=== PATIENT | female | born 1965 | race Caucasian/White ===

== ENCOUNTER 2017-03-16 05:38 | Outpatient (CLI) | payer BC ==
[~2017-03-16] VITALS: Ht 157.5 cm; Wt 83.9 kg
[~2017-03-16 05:38] MED LIST: ACHD5005 PO; ALPR0.2550 PO; CA C1TAB75 PO; CIPR-225 PO; DCS100C PO; IBP600T1 PO; METO25TA2 PO; MULT-974 PO; OMEG-12 PO; SULF1TAB38 PO; VITA150T PO
[2017-03-16] MEDS ORDERED: ESTR1PAT77 TD (09:46)
[2017-03-16] MEDS ORDERED: ALPR0.254 PO (09:46)
[2017-03-16] MEDS ORDERED: CA C1TAB75 PO (09:46)
[2017-03-16] MEDS ORDERED: MULT-178 PO (09:46)
[2017-03-16] MEDS ORDERED: VITA150T PO (09:46)
[2017-03-16] MEDS ORDERED: METO-333 PO (09:46)
[2017-03-16] MEDS ORDERED: OMEG100032 PO (09:46)
== END 2017-03-16 09:48 ==
LOC: PREOP 05:38
PROVIDERS: ATTEND Surgery
DX: Z01.818 Encounter for other preprocedural examination (principal); Z12.11 Encounter for screening for malignant neoplasm of colon

== ENCOUNTER 2017-03-20 08:24 | Day surgery (SDC) | payer BC ==
[~2017-03-20] VITALS: Ht 157.5 cm; Wt 83.9 kg
[~2017-03-20 08:24] MED LIST changes: +ALPR0.254 PO; +ESTR1PAT77 TD; +METO-333 PO; +MULT-178 PO; +OMEG100032 PO
--- OUTSIDE RECORDS SUMMARY | 2017-03-20 08:27 | XMS REPORT | Continuity of Care Document ---
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 01/29/2013 DEBO PALMA DO Ot 620.2 OVARIAN CYST NEC/NOS 01/11/2015 DEBO PALMA DO Ot V76.12 01/14/2015 DEBO PALMA DO Ot V76.12 01/21/2015 DEBO PALMA DO Ot 793.80 08/04/2015 DEBO PALMA DO Ot R92.8 08/12/2015 DEBO PALMA DO Ot R92.8 01/09/2016 JAYESH PALACIOS APRN Ot M54.5 LOW BACK PAIN 01/09/2016 JAYESH PALACIOS HAND HARDENER Ot N39.0 URINARY TRACT INFECTION, SITE NOT SPECIF 01/11/2016 JAYESH PALACIOS HAND HARDENER Ot M54.5 LOW BACK PAIN 01/11/2016 JAYESH PALACIOS HAND HARDENER Ot N39.0 URINARY TRACT INFECTION, SITE NOT SPECIF 02/17/2016 Ot V76.12 OTH SCREEN MAMMO-MALIGN NEOPLASM OF LOS 02/17/2016 Ot V76.12 OTH SCREEN MAMMO-MALIGN NEOPLASM OF LOS 02/17/2016 Ot 268.9 VITAMIN D DEFICIENCY NOS 02/17/2016 Ot 300.02 GENERALIZED ANXIETY DIS 02/17/2016 Ot 401.9 HYPERTENSION NOS 02/17/2016 Ot V58.69 OTH MED,LT,CURRENT USE 02/17/2016 Ot 794.5 ABN THYROID FUNCT STUDY 02/17/2016 DEBO PALMA DO Ot 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 02/17/2016 DEBO PALMA DO Ot V76.12 OTH SCREEN MAMMO-MALIGN NEOPLASM OF LOS 02/17/2016 DEBO PALMA DO Ot 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 02/17/2016 DEBO PALMA DO Ot 791.9 ABN URINE FINDINGS NEC 02/17/2016 DEBO PALMA DO Ot V72.63 PRE-PROCEDURAL LABORATORY EXAMINATION 02/17/2016 DEBO PALMA DO Ot V74.8 SCREEN-BACTERIAL DIS NEC 02/17/2016 DEBO PALMA DO Ot V76.12 OTH SCREEN MAMMO-MALIGN NEOPLASM OF LOS 02/17/2016 DEBO PALMA DO Ot V76.12 OTH SCREEN MAMMO-MALIGN NEOPLASM OF LOS 02/17/2016 DEBO PALMA DO Ot 793.80 UNSPEC ABNORMAL MAMMOGRAM 02/17/2016 DEBO PALMA DO Ot R92.8 OTH ABN AND INCONCLUSIVE FINDINGS ON DX 03/13/2016 Ot V76.12 OTH SCREEN MAMMO-MALIGN NEOPLASM OF LOS 03/13/2016 Ot 268.9 VITAMIN D DEFICIENCY NOS 03/13/2016 Ot 300.02 GENERALIZED ANXIETY DIS 03/13/2016 Ot 401.9 HYPERTENSION NOS 03/13/2016 Ot V58.69 OTH MED,LT,CURRENT USE 03/13/2016 Ot 794.5 ABN THYROID FUNCT STUDY 03/13/2016 DEBO PALMA DO Ot 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 03/13/2016 DEBO PALMA DO Ot V76.12 OTH SCREEN MAMMO-MALIGN NEOPLASM OF LOS 03/13/2016 DEBO PALMA DO Ot 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 03/13/2016 DEBO PALMA DO Ot 791.9 ABN URINE FINDINGS NEC 03/13/2016 DEBO PALMA DO Ot V72.63 PRE-PROCEDURAL LABORATORY EXAMINATION 03/13/2016 DEBO PALMA DO Ot V74.8 SCREEN-BACTERIAL DIS NEC 03/13/2016 DEBO PALMA DO Ot V76.12 OTH SCREEN MAMMO-MALIGN NEOPLASM OF LOS 03/13/2016 DEBO PALMA DO Ot V76.12 OTH SCREEN MAMMO-MALIGN NEOPLASM OF LOS 03/13/2016 DEBO PALMA DO Ot 793.80 UNSPEC ABNORMAL MAMMOGRAM 03/13/2016 DEBO PALMA DO Ot R92.8 OTH ABN AND INCONCLUSIVE FINDINGS ON DX 2016 Ot V76.12 OTH SCREEN MAMMO-MALIGN NEOPLASM OF LOS 2016 Ot 268.9 VITAMIN D DEFICIENCY NOS 2016 Ot 300.02 GENERALIZED ANXIETY DIS 2016 Ot 401.9 HYPERTENSION NOS 2016 Ot V58.69 OTH MED,LT,CURRENT USE 2016 Ot 794.5 ABN THYROID FUNCT STUDY 2016 DEBO PALMA DO Ot 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 2016 DEBO PALMA DO Ot V76.12 OTH SCREEN MAMMO-MALIGN NEOPLASM OF LOS 2016 DEBO PALMA DO Ot 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 2016 DEBO PALMA DO Ot 791.9 ABN URINE FINDINGS NEC 2016 DEBO PALMA DO Ot V72.63 PRE-PROCEDURAL LABORATORY EXAMINATION 2016 DEBO PALMA DO Ot V74.8 SCREEN-BACTERIAL DIS NEC 2016 DEBO PALMA DO Ot V76.12 OTH SCREEN MAMMO-MALIGN NEOPLASM OF LOS 2016 DEBO PALMA DO Ot V76.12 OTH SCREEN MAMMO-MALIGN NEOPLASM OF LOS 2016 DEBO PALMA DO Ot 793.80 UNSPEC ABNORMAL MAMMOGRAM 2016 DEBO PALMA DO Ot R92.8 OTH ABN AND INCONCLUSIVE FINDINGS ON DX 05/26/2016 RADHA BRADEN HAND HARDENER Ot M25.561 PAIN IN RIGHT KNEE 05/31/2016 RADHA BRADEN HAND HARDENER Ot M25.561 PAIN IN RIGHT KNEE 06/07/2016 RADHA BRADEN APRN Ot M25.561 PAIN IN RIGHT KNEE Procedures Results Encounters ACCT No. Visit Date/Time Discharge Status Pt. Type Provider Facility Loc./Unit Complaint [id number] 2016 11:46:00 2015 23:59:59 CLS Outpatient RADHA BRADEN HAND HARDENER [facility] RAD RT KNEE PAIN [id number] 01/09/2016 15:51:00 2015 17:15:00 DIS Emergency JAYESH PALACIOS [facility] HAND HARDENER [facility] ER BLOOD IN URINE/CRAMPING [id number] 07/28/2015 13:24:00 2015 23:59:59 CLS Outpatient DEBO PALMA DO [facility] RAD ABNORMAL FINDING ON MAMMOGRAPHY [id number] 01/08/2015 08:27:00 2014 23:59:59 CLS Outpatient DEBO PALMA DO [facility] RAD ABNORMAL MAMMO [id number] 01/01/2015 13:47:00 2014 23:59:59 CLS Outpatient DEBO PALMA DO [facility] RAD SCREENING [id number] 11/24/2013 09:32:00 2013 23:59:59 CLS Outpatient DEBO PALMA DO [facility] RAD SCREENING [id number] 01/28/2013 06:55:00 2012 12:10:00 DIS Outpatient DEBO PALMA DO [facility] UTERINE FIBROIDS [id number] 01/21/2013 11:58:00 2012 23:59:59 CLS Outpatient DEBO PALMA DO [facility] PREOP UTERINE FIBROIDS [id number] 11/22/2012 09:14:00 2012 23:59:59 CLS Outpatient DEBO PALMA DO [facility] RAD ROUTINE,UTERAN ENLARGEMENT [id number] 03/20/2017 10:15:00 PEN Preadmit DEMETRIA QUINTANA DO [facility] SDC SCREENING [id number] 08/28/2012 15:30:00 Document Registration [id number] 08/28/2012 15:08:00 Document Registration [id number] 09/25/2011 09:23:00 Document Registration [id number] 09/20/2010 08:55:00 Document Registration
[2017-03-20] MEDS ORDERED: LACTATED RINGERS 1,000 ML IV STA (08:33)
[2017-03-20 08:45] VITALS: BP 128/70
--- NOTE | 2017-03-20 09:36 | Progress Note-Pre Operative ---
Pre-Operative Progress Note H&P Reviewed The H&P was reviewed, patient examined and no changes noted. Date Seen by Provider: Mar 20, 2017 Time Seen by Provider: 09:35 Date H&P Reviewed: Mar 20, 2017 Time H&P Reviewed: 09:36 Pre-Operative Diagnosis: screeing colonoscopy DEMETRIA QUINTANA DO Mar 20, 2017 9:36 am
[2017-03-20] MEDS ORDERED: PROPOFOL INJECTION 50 ML IV ONE (10:20)
[2017-03-20] MEDS ORDERED: MIDAZOLAM 2 MG/2 ML (VERSED) VIAL ONE (10:20)
--- NOTE | 2017-03-20 11:08 | Progress Note-Post Operative ---
Post-Operative Progess Note Surgeon (s)/Vehicle Sales Professional (s) Surgeon DEMETRIA QUINTANA DO Vehicle Sales Professional: na Pre-Operative Diagnosis screeing colonoscopy Post-Operative Diagnosis normal colon Procedure & Operative Findings Date of Procedure 03/20/17 Procedure Performed/Findings colonoscopy Anesthesia Type per pizza driver Estimated Blood Loss Estimated blood loss (mL): none Specimens/Packing Specimens Removed na DEMETRIA QUINTANA DO Mar 20, 2017 11:08
--- NOTE | 2017-03-20 11:10 | Discharge Inst-Simple/Standard ---
Discharge Inst-Standard Patient Instructions/Follow Up Plan of Care/Instructions/FU: repeat colonoscopy in 10 years unless family history of colon cancer which would be 5 years. Any problems before then be re-evaluated. Activity as Tolerated: Yes Discharge Diet: Regular Diet DEMETRIA QUINTANA DO Mar 20, 2017 11:10
[2017-03-20 11:30] VITALS: BP 102/52
[2017-03-20 12:00] VITALS: BP 108/54
[2017-03-20 12:10] VITALS: BP 108/54
--- NOTE | 2017-03-20 23:58 | OPERATIVE REPORT ---
DATE OF SERVICE: 03/20/2017 PREOPERATIVE DIAGNOSIS: Screening colonoscopy. POSTOPERATIVE DIAGNOSIS: Normal colon. PROCEDURE: Colonoscopy. SURGEON: Demetria Wu DO ANESTHESIA: Per REPORT MANAGER. ESTIMATED BLOOD LOSS: None. COMPLICATIONS: None. INDICATIONS: The patient is a 51-year-old female here for screening colonoscopy. She understands risks and benefits and wishes to proceed. Consent was signed on chart. DESCRIPTION OF PROCEDURE: The patient was taken to the endoscopy suite, placed in left lateral recumbent position. Timeout was performed. Digital rectal exam was performed. There were no palpable polyps, masses or ulcerations. Scope was inserted in the rectum and advanced all way to the cecum with minimal difficulty. Prep was adequate. The cecum had no polyps, masses or ulcerations. Scope was then continued to be slowly retracted back. There were no polyps, mass or ulcerations within the ascending, transverse, descending and sigmoid colon. In the rectum, the scope was continuously retracted back and then also retroflexed, noting no other pathology. The scope was then returned to its normal position, slowly withdrawn until completely removed. The patient tolerated the procedure well without any complications. She was taken to recovery room in stable condition. RECOMMENDATIONS: The patient will need repeat colonoscopy in 10 years unless family history of colon cancer which would then be 5 years. If she has any problems prior to that, she should be reevaluated at that time. Job ID: [id number] DocumentID: [id number] Dictated Date: 03/20/2017 11:13:31 Pan Tank Worker Date: 03/20/2017 23:57:30 Dictated By: DEMETRIA WU DO
== END 2017-03-20 12:10 | disposition home or self-care (01) ==
LOC: SDC 08:24
PROVIDERS: ATTEND Surgery
DX: Z12.11 Encounter for screening for malignant neoplasm of colon (principal); I10 Essential (primary) hypertension; F41.9 Anxiety disorder, unspecified; E66.9 Obesity, unspecified; Z68.33 Body mass index [BMI] 33.0-33.9, adult; Z79.899 Other long term (current) drug therapy

== ENCOUNTER → 2018-05-10 | Outpatient (CLI) | payer BC ==
--- NOTE | 2018-05-10 10:57 | Diagnostic Imaging Report ---
CLINICAL INDICATION: Patient injured right knee three years ago. Patient has pain and swelling this year. No recent injury. EXAM: X-ray of the right knee, three views. COMPARISON: X-ray of the right knee dated 06/05/2016. FINDINGS: There is no acute fracture or dislocation. There is slight progression of moderately hypertrophic tricompartmental spurs. There is at least mild medial and lateral compartment narrowing which has slightly progressed. There appears to be a knee effusion. IMPRESSION: Moderate tricompartmental arthritis of the right knee which has progressed. Dictated by: Dictated on workstation # [id number]
== END ==
LOC: RAD 08:43
PROVIDERS: ATTEND Family Medicine
DX: M17.11 Unilateral primary osteoarthritis, right knee (principal)
CPT/HCPCS: 73562

== ENCOUNTER → 2018-05-28 | Outpatient (CLI) | payer BC ==
--- NOTE | 2018-05-28 13:07 | Diagnostic Imaging Report ---
PROCEDURE: MRI right joint lower extremity without contrast. TECHNIQUE: Multiplanar, multisequence MR imaging of the right knee was performed without contrast. COMPARISON: None available. INDICATION: Right knee pain. FINDINGS: MENISCI Medial meniscus: Normal. Lateral meniscus: Extensive macerated tearing of the body and anterior horn of the lateral meniscus. The body is partially extruded into the lateral gutter. LIGAMENTS ACL: Intact. PCL: Intact. MCL: Intact. LCL: The lateral collateral ligamentous complex is intact. EXTENSOR MECHANISM The extensor mechanism is intact. CARTILAGE Medial compartment: Medial compartment articular cartilage is well preserved without focal high-grade chondromalacia. Lateral compartment: Broad area of full-thickness articular cartilage loss throughout the weightbearing aspect of the lateral femoral condyle. Patellofemoral compartment: Multifocal full-thickness chondral fissuring and loss in the inferior aspect of the lateral patellar facet. BONE No fracture, stress fracture or osteonecrosis. SOFT TISSUE No knee joint effusion. Large Rowe's cyst measures 7.5 x 3.9 x 2.4 cm. IMPRESSION: 1. Extensive macerated tearing of the anterior horn and body of the lateral meniscus. The body is partially extruded into the lateral gutter. 2. There is associated full-thickness articular cartilage loss throughout the weightbearing aspect of the lateral compartment. 3. Multifocal and degenerative partial-thickness articular cartilage loss in the patella. 4. Large unruptured Rowe's cyst. Dictated by: Dictated on workstation # [id number]
== END ==
LOC: RAD 09:50
PROVIDERS: ATTEND Nurse Practitioner Family
DX: M23.241 Derangement of anterior horn of lateral meniscus due to old tear or injury, right knee (principal); M23.91 Unspecified internal derangement of right knee; M71.21 Synovial cyst of popliteal space [Baker], right knee
CPT/HCPCS: 73721

== ENCOUNTER → 2018-09-11 | Outpatient (CLI) | payer BC ==
--- NOTE | 2018-09-11 12:44 | Diagnostic Imaging Report ---
INDICATION: Routine screening. Comparison is made with prior mammogram from 01/01/2015 and 11/24/2013. 2-D and 3-D bilateral screening mammography was performed with a Computer Aided Detection (CAD) system. FINDINGS: Both breasts are heterogeneously dense, limiting the sensitivity of mammography. The parenchymal pattern is stable. No mass or malignant appearing microcalcifications are seen. The axillae are unremarkable. IMPRESSION: No mammographic features suspicious for malignancy are identified. ACR BI-RADS Category 1: Negative. Result letter will be mailed to the patient. Note: At least 10% of breast cancer is not imaged by mammography. Dictated by: Dictated on workstation # [id number]
== END ==
LOC: RAD 10:30
PROVIDERS: ATTEND Nurse Practitioner Family
DX: Z12.31 Encounter for screening mammogram for malignant neoplasm of breast (principal)
CPT/HCPCS: 77067

== ENCOUNTER 2018-11-13 05:31 | Outpatient (CLI) | payer BC ==
[~2018-11-13] VITALS: Ht 157.5 cm; Wt 83.9 kg
[2018-11-13] MEDS ORDERED: CETI10TA17 PO (10:51)
[2018-11-13] MEDS ORDERED: VITA1CAP42 PO (10:51)
== END 2018-11-13 10:58 | disposition home or self-care (01) ==
LOC: PREOP 05:31
PROVIDERS: ATTEND Orthopaedic Surgery
DX: Z01.818 Encounter for other preprocedural examination (principal)

== ENCOUNTER 2018-12-26 09:53 | Emergency (ER) | payer BC ==
[~2018-12-26] VITALS: Ht 157.5 cm; Wt 79.4 kg
[~2018-12-26 09:53] MED LIST changes: +CETI10TA17 PO; +HYDR-3816 PO; +VITA1CAP42 PO
[2018-12-26 10:57] LABS: COLOR,URINE BROWN
[2018-12-26 10:58] LABS: BILIRUBIN,URINE NEGATIVE (NEGATIVE); CLARITY,URINE VERY CLOUDY; GLUCOSE, URINE (UA) NEGATIVE (NEGATIVE); KETONES,URINE 1+ (NEGATIVE); LEUKOCYTE ESTERASE ,URINE 3+ (NEGATIVE); NITRITE,URINE POSITIVE (NEGATIVE); PH,URINE 5 (5-9); PROTEIN,URINE 4+ (NEGATIVE); RBC,URINE TNTC /HPF; UROBILINOGEN,URINE 1 MG/DL (NORMAL); WBC,URINE 50-100 /HPF
[2018-12-26 10:59] LABS: BACTERIA,URINE NEGATIVE /HPF
[2018-12-26] MEDS ORDERED: CIPR500T4 PO (11:37)
[2018-12-26] MEDS ORDERED: PHEN-640 PO (11:37)
--- NOTE | 2018-12-26 11:38 | ED GU-Female ---
General Chief Complaint: - Urinary Stated Complaint: LOW ABD PAIN / BLOOD IN URINE Nursing Triage Note: Pt to ED rm 7 with c/o abdominal cramping, dysuria and hematuria. Pt reports symptoms began suddenly this morning. Pt reports blood in the toilet and on the paper when wiping. Pt gave urine sample and urine was dark brown. Nursing Sepsis Screen: No Definite Risk Source: patient Exam Limitations: no limitations Allergies and Home Medications Allergies Coded Allergies: morphine (Verified Allergy, Severe, ITCHING, 01/09/16) Penicillins (Verified Allergy, Unknown, 03/20/17) Home Medications Alprazolam 0.25 Mg Tablet, 0.25 MG PO TID PRN for ANXIETY, (Reported) B Complex with Vitamin C 1 Each Capsule, 1 EACH PO DAILY, (Reported) Ca Carbonate/Vitamin D3/Vit K 1 Each Tab.chew, 2 EACH PO DAILY, (Reported) Cetirizine HCl 10 Mg Tablet, 10 MG PO DAILY, (Reported) Estradiol 1 Each Patch.tdwk, 1 PATCH TD WEEK, (Reported) Hydrocodone/Acetaminophen 1 Each Tablet, 1 TAB PO Q4H PRN for PAIN-MODERATE Prescribed by: HEATHER BLACKBURN on 11/20/18 1133 Metoprolol Tartrate 25 Mg Tablet, 25 MG PO BID, (Reported) Multivitamin 1 Each Tablet, 1 EACH PO DAILY, (Reported) [place]-3/Dha/Epa/Fish Oil 1,000 Mg Capsule, 1,000 MG PO BID, (Reported) Past Jgpjudv-Atqchm-Rekcfc Hx Patient Social History Alcohol Use: Occasionally Uses Recreational Drug Use: No 2nd Hand Smoke Exposure: No Recent Foreign Travel: No Contact w/Someone Who Travel: No Recent Infectious Disease Expo: No Recent Hopitalizations: No Immunizations Up To Date Tetanus Booster (TDap): More than 5yrs PED Vaccines UTD: No Seasonal Allergies Seasonal Allergies: Yes (mild) Past Medical History Surgeries: Yes (HYMENECTOMY, right foot, R knee) Appendectomy, Section, Hysterectomy, Orthopedic Respiratory: No Cardiac: Yes Hypertension Neurological: No Reproductive Disorders: No BLADE GRINDER History: Hysterectomy Genitourinary: No Gastrointestinal: No Musculoskeletal: Yes (OSTEOARTHRITIS) Arthritis Endocrine: No HEENT: No Loss of Vision: Denies Hearing Impairment: Denies Cancer: No (pre cancerous cells on cervix ) Psychosocial: Yes Anxiety Integumentary: No Blood Disorders: No Adverse Reaction/Blood Tranf: No Physical Exam Vital Signs Vital Signs - First Documented 12/26/18 10:24 Temp 97.6 Pulse 69 Resp 15 B/P (MAP) 123/82 (96) Pulse Ox 98 O2 Delivery Room Air Capillary Refill : Less Than 3 Seconds Height, Weight, BMI Height: 5'2.00" Weight: 175lbs. 0.0oz. 79.328384dl; 33.8 BMI Method:Stated Progress/Results/Core Measures Suspected Sepsis Recent Fever Within 48 Hours: No Infection Criteria Present: None New/Unexplained Altered Menta: No Sepsis Screen: No Definite Risk SIRS Temperature:97.6 Pulse: 69 Respiratory Rate: 15 Blood Pressure 123 /82 Mean: 96 Results/Orders Lab Results Laboratory Tests Test 12/26/18 10:28 Range/Units Urine Color BROWN H Urine Clarity VERY CLOUDY H Urine pH 5 5-9 Urine Specific [place] 1.020 1.016-1.022 Urine Protein 4+ NEGATIVE Urine Glucose (UA) NEGATIVE NEGATIVE Urine Ketones 1+ H NEGATIVE Urine Nitrite POSITIVE NEGATIVE Urine Bilirubin NEGATIVE NEGATIVE Urine Urobilinogen 1 NORMAL MG/DL Urine Leukocyte Esterase 3+ H NEGATIVE Urine RBC (Auto) 5+ H NEGATIVE Urine RBC TNTC H /HPF Urine WBC 50-100 H /HPF Urine Squamous Epithelial Cells NONE /HPF Urine Crystals NONE /LPF Urine Bacteria NEGATIVE /HPF Urine Casts NONE /LPF Urine Mucus NEGATIVE /LPF Urine Culture Indicated YES My Orders Orders - ANNEMARIE BARTON MD Ua Culture If Indicated (12/26/18 10:18) Urine Culture (12/26/18 10:28) Vital Signs/I&O 12/26/18 10:24 Temp 97.6 Pulse 69 Resp 15 B/P (MAP) 123/82 (96) Pulse Ox 98 O2 Delivery Room Air Capillary Refill : Less Than 3 Seconds Blood Pressure Mean: 96 Departure Impression Primary Impression: Urinary tract infection Qualified Codes: N39.0 - Urinary tract infection, site not specified Additional Impressions: Dysuria Hematuria Qualified Codes: R31.9 - Hematuria, unspecified Disposition: 01 HOME, SELF-CARE Condition: Stable Departure-Patient Inst. Decision time for Depature: 11:33 Referrals: FATEMEH PIEDRA MD (PCP/Family) Primary Care Physician Patient Instructions: Blood in the Urine (Hematuria) in Adults, Urinary Tract Infections in Adults Add. Discharge Instructions: Aggressively hydrated with plenty of clear liquids today. Please start your antibiotic promptly today and make sure you get your second dose in before bed tonight. Return to care if you have worsening symptoms such as escalating pain, development of fevers, vomiting, etc. Follow-up with your primary care provider after 48 hours to review urine culture. Because of blood in your urine, it is recommended that you have your urine checked again after completing antibiotics to ensure the blood clears. If treating for urinary tract infection does not resolve your symptoms, you may need further workup which might include CT imaging, referral to urology, etc. In addition to the prescribed medications, you may take Tylenol and/or ibuprofen. All discharge instructions reviewed with patient and/or family. Voiced understanding. Scripts Phenazopyridine HCl (Pyridium) 200 Mg Tablet 1 TAB PO TID PRN for PAIN-MODERATE TO SEVERE, #10 TAB Prov: ANNEMARIE BARTON MD 12/26/18 Ciprofloxacin HCl (Ciprofloxacin HCl) 500 Mg Tablet 500 MG PO BID, #14 TAB Prov: ANNEMARIE BARTON MD 12/26/18 Copy Copies To 1: FATEMEH PIEDRA MD, JOSHUA T MD Dec 26, 2018 11:38
[2018-12-26 11:50] VITALS: BP 96/71
== END 2018-12-26 11:53 | disposition home or self-care (01) ==
LOC: EDUNIT# 09:53 → ER 09:55
DX: N39.0 Urinary tract infection, site not specified (principal); I10 Essential (primary) hypertension; F41.9 Anxiety disorder, unspecified; Z88.0 Allergy status to penicillin; Z88.5 Allergy status to narcotic agent; Z90.49 Acquired absence of other specified parts of digestive tract; Z90.710 Acquired absence of both cervix and uterus
CPT/HCPCS: 81000; 87077; 87088; 87186; 99282

== ENCOUNTER → 2019-11-11 | Outpatient (CLI) | payer BC ==
[~2019-11-11] MED LIST changes: +CIPR500T4 PO; +HYDR-34 PO; -HYDR-3816 PO; +PHEN-640 PO
--- NOTE | 2019-11-11 12:40 | Diagnostic Imaging Report ---
INDICATION: Routine screening. COMPARISON: 09/11/2018 and 01/01/2015. TECHNIQUE: 2D and 3D bilateral screening mammography was performed with CAD. FINDINGS: Both breasts are heterogeneously dense, limiting the sensitivity of mammography. The parenchymal pattern is stable. No mass or malignant appearing microcalcifications are seen. The axillae are unremarkable. IMPRESSION: No mammographic features suspicious for malignancy are identified. ACR BI-RADS Category 1: Negative. Result letter will be mailed to the patient. Note: At least 10% of breast cancer is not imaged by mammography. Dictated by: Dictated on workstation # [id number]
== END ==
LOC: RAD 09:57
PROVIDERS: ATTEND Nurse Practitioner Women's Health
DX: Z12.31 Encounter for screening mammogram for malignant neoplasm of breast (principal)
CPT/HCPCS: 77063; 77067

== ENCOUNTER → 2020-07-21 | Outpatient (CLI) | payer BC ==
[~2020-07-21] MED LIST changes: +ALPR.25T PO; -ALPR0.254 PO
--- NOTE | 2020-07-21 14:47 | Diagnostic Imaging Report ---
INDICATION: Palpable lump right breast. COMPARISON: Correlation is made with the diagnostic mammogram from earlier this same day. FINDINGS: Sonographic interrogation of the area of palpable abnormality in the right breast was performed. This corresponds to the 6 o'clock location. No sonographic abnormality is seen. No solid or cystic mass is detected. IMPRESSION: No sonographic abnormality is detected. Continued close clinical and self breast exams are recommended to confirm stability of the palpable abnormality. ACR BI-RADS Category 1: Negative. Dictated by: Dictated on workstation # [id number]
--- NOTE | 2020-07-21 15:49 | Diagnostic Imaging Report ---
INDICATION: Palpable lump right breast. COMPARISON: Correlation is made with the prior mammogram of 07/28/2015. TECHNIQUE: Unilateral 2D and 3D diagnostic mammography was performed. FINDINGS: Scattered fibroglandular densities in the right breast are noted. A BB marker was placed at the area of palpable abnormality in the inner right breast. No underlying abnormality is seen. No mass or malignant appearing microcalcifications are seen. The right axilla is unremarkable. IMPRESSION: No mammographic features suspicious for malignancy are identified. Even so, directed sonographic interrogation of the area of palpable abnormality is recommended and will be performed today. ACR BI-RADS Category 0: Incomplete. (Needs additional imaging evaluation). Result letter will be mailed to the patient. Note: At least 10% of breast cancer is not imaged by mammography. Dictated by: Dictated on workstation # [id number]
== END ==
LOC: RAD 13:45
PROVIDERS: ATTEND Obstetrics & Gynecology
DX: N63.10 Unspecified lump in the right breast, unspecified quadrant (principal)
CPT/HCPCS: 76642; 77065; G0279

== ENCOUNTER → 2021-02-18 | Outpatient (CLI) | payer BC ==
[~2021-02-18] MED LIST changes: -CIPR500T4 PO; +CIPR500T5 PO
--- NOTE | 2021-02-21 08:32 | Diagnostic Imaging Report ---
INDICATION: Routine screening. COMPARISON: 11/11/2019 and 09/11/2018. TECHNIQUE: 2D and 3D bilateral screening mammography was performed with CAD. FINDINGS: Both breasts are heterogeneously dense, limiting the sensitivity of mammography. The parenchymal pattern is stable. No mass or malignant-appearing microcalcifications are seen. The axillae are unremarkable. IMPRESSION: No mammographic features suspicious for malignancy are identified. ACR BI-RADS Category 1: Negative. Result letter will be mailed to the patient. Note: At least 10% of breast cancer is not imaged by mammography. Dictated by: Dictated on workstation # [id number]
== END ==
LOC: RAD 14:45
PROVIDERS: ATTEND Obstetrics & Gynecology
DX: Z12.31 Encounter for screening mammogram for malignant neoplasm of breast (principal)
CPT/HCPCS: 77063; 77067

== ENCOUNTER → 2021-11-03 | Outpatient (CLI) | payer BC ==
--- NOTE | 2021-11-03 16:26 | Diagnostic Imaging Report ---
INDICATION: This patient had a clinically palpable fullness right breast 6 o'clock position, earlier she underwent stable and negative unilateral right mammogram. Ultrasound is performed as further investigation. Sonographic surveillance throughout the region of reported clinical complaint shows no solid or cystic mass, no parenchymal distortion, no ductal ectasia, no fluid collection. IMPRESSION: Normal negative targeted right breast ultrasound and stable negative unilateral right mammogram. If further workup of any clinically suspicious palpable abnormalities were acquired would need to be directed on a clinical basis as the imaging is negative. ACR BI-RADS Category 1: Negative. Result letter will be mailed to the patient. Note: At least 10% of breast cancer is not imaged by mammography. BI-RADS Category 1 Dictated by: Dictated on workstation # [id number]
--- NOTE | 2021-11-03 16:29 | Diagnostic Imaging Report ---
INDICATION: This patient had a clinically palpable area of fullness in the 6 o'clock position of the right breast. It is compared with the right mammogram of 01/2021, 06/2020, 10/2019 and 08/2018. TECHNIQUE: Unilateral right 3D diagnostic. The current study was also evaluated with a Computer Aided Detection (CAD) system. FINDINGS: Density 2. No focal abnormality or asymmetry in the 6:00 region of the right breast is found. There is no mass, architectural distortion, spiculated lesion, suspicious calcifications or interval change. In light of the absence of a convincing benign mammographic explanation to the abnormal clinical exam, we are proceeding with targeted right breast ultrasound. That study currently pending and will be formally dictated separately. IMPRESSION: Stable nonfocal normal unilateral right mammogram, however, ultrasound pending for further evaluation. BI-RADS Category 0 right breast ultrasound pending. Dictated by: Dictated on workstation # [id number]
== END ==
LOC: RAD 13:45
PROVIDERS: ATTEND Obstetrics & Gynecology
DX: N63.10 Unspecified lump in the right breast, unspecified quadrant (principal)
CPT/HCPCS: 76642; 77065; G0279

== ENCOUNTER 2021-11-26 20:05 | Emergency (ER) | payer BC ==
[~2021-11-26] VITALS: Ht 157.5 cm; Wt 82.6 kg
[2021-11-27 00:04] LABS: ALBUMIN 4.2 GM/DL (3.2-4.5); BASOPHILS % (AUTO) 0 % (0-10); EOSINOPHILS # (AUTO) 0.1 10^3/uL (0.0-0.3); EOSINOPHILS % (AUTO) 1 % (0-10); HEMATOCRIT 38 % (35-52); HEMOGLOBIN 13.3 g/dL (11.5-16.0); LYMPHOCYTES # (AUTO) 2.1 10^3/uL (1.0-4.0); LYMPHOCYTES % (AUTO) 20 % (12-44); MEAN CORPUSCULAR HEMOGLOBIN 30 pg (25-34); MEAN CORPUSCULAR HGB CONC 35 g/dL (32-36); MEAN CORPUSCULAR VOLUME 84 fL (80-99); MEAN PLATELET VOLUME 9.3 fL (9.0-12.2); MONOCYTES # (AUTO) 0.9 10^3/uL (0.0-1.0); MONOCYTES % (AUTO) 9 % (0-12); NEUTROPHILS # (AUTO) 7.3 10^3/uL (1.8-7.8); NEUTROPHILS % (AUTO) 70 % (42-75); PLATELET COUNT 280 10^3/uL (130-400); WHITE BLOOD COUNT 10.5 10^3/uL (4.3-11.0)
[2021-11-27 00:05] LABS: POTASSIUM 3.5 MMOL/L (3.6-5.0)
[2021-11-27 00:06] LABS: CALCIUM 9.1 MG/DL (8.5-10.1)
[2021-11-27 00:07] LABS: TOTAL PROTEIN 6.8 GM/DL (6.4-8.2)
[2021-11-27 00:09] LABS: BILIRUBIN,TOTAL 0.3 MG/DL (0.1-1.0)
[2021-11-27 00:11] LABS: CREATININE SERUM 0.61 MG/DL (0.60-1.30)
[2021-11-27 00:13] LABS: MAGNESIUM 1.9 MG/DL (1.6-2.4)
[2021-11-27 00:28] LABS: ERYTHROCYTE SEDIMENTATION RATE 3 MM/HR (0-30)
[2021-11-27 00:33] LABS: TSH (THYROID ANALYZER) 0.75 UIU/ML (0.35-4.94)
--- NOTE | 2021-11-27 02:42 | ED Headache ---
General Chief Complaint: Head/Cervical Problems Stated Complaint: CONSTANT HEADACHE,HIGH BP,FEELS "STRANGE" Nursing Triage Note: Pt ambulates to ED 5. Reports having a bad headache November 07 and has been having headaches more frequently and elevated blood pressure since then. Sunday, pt reports having a few alcoholic drinks and 2 edibles and has not felt right since. pt reports eye problems, was checked out by Dr Yanez, Sunday went to primary dr, who instructed to increase fluids and take two blood pressure medications tonight and recheck in the morning, but pt did not do that because she did not feel comfortable doing that. Pt states she is prone to anxiety attacks and takes Xanax BID prn. Tylenol and ibuprofen has been taken intermittently with minimal relief. Pt reports mother had a stroke on her 49th bday and would like to be checked out. Allergies and Home Medications Allergies Coded Allergies: morphine (Verified Allergy, Severe, ITCHING, 01/09/16) Penicillins (Verified Allergy, Unknown, 03/20/17) Patient Home Medication List ALPRAZolam (Xanax Tablet) 0.25 Mg Tablet, 0.25 MG PO TID PRN for ANXIETY, (Reported) Entered as Reported by: DARVIN FRANCISCO on 03/16/17 0946 B Complex with Vitamin C (Super B with Vit C) 1 Each Capsule, 1 EACH PO DAILY, (Reported) Entered as Reported by: DARVIN FRANCISCO on 11/13/18 1051 Ca Carbonate/Vitamin D3/Vit K (Calcium + D Soft Chewable Tab) 1 Each Tab.chew, 2 EACH PO DAILY, (Reported) Entered as Reported by: DARVIN FRANCISCO on 03/16/17 0946 Cetirizine HCl (Cetirizine HCl) 10 Mg Tablet, 10 MG PO DAILY, (Reported) Entered as Reported by: DARVIN FRANCISCO on 11/13/18 1051 Ciprofloxacin HCl (Ciprofloxacin HCl) 500 Mg Tablet, 500 MG PO BID Prescribed by: ANNEMARIE AGUIRRE on 12/26/18 1137 Estradiol (Estradiol Patch Weekly 0.1mg/hr) 1 Each Patch.tdwk, 1 PATCH TD WEEK, (Reported) Entered as Reported by: DARVIN FRANCISCO on 03/16/17 0946 Hydrocodone Bit/Acetaminophen (HYDROcodone/APAP 7.5/325 TAB) 1 Each Tablet, 1 TAB PO Q4H PRN for PAIN-MODERATE Prescribed by: HEATHER BLACKBURN on 11/20/18 1133 Metoprolol Tartrate (Metoprolol Tartrate) 25 Mg Tablet, 25 MG PO BID, (Reported) Entered as Reported by: DARVIN FRANCISCO on 03/16/17 0946 Multivitamin (Multiple Vitamins) 1 Each Tablet, 1 EACH PO DAILY, (Reported) Entered as Reported by: DARVIN FRANCISCO on 03/16/17 0946 Spencer-3/Dha/Epa/Fish Oil (Fish Oil 1,000 mg Softgel) 1,000 Mg Capsule, 1,000 MG PO BID, (Reported) Entered as Reported by: DARIVN FRANCISCO on 03/16/17 0946 Phenazopyridine HCl (Pyridium) 200 Mg Tablet, 1 TAB PO TID PRN for PAIN-MODERATE TO SEVERE Prescribed by: ANNEMARIE AGUIRRE on 12/26/18 1137 Past Avjjuoh-Lyvheb-Zpyowm Hx Patient Social History Tobacco Use?: No Smoking Status: Never a Smoker Smokeless Tobacco Frequency: Never a User Use of E-Cig and/or Vaping Pilo: Never a User Substance use?: No Alcohol Use?: No Pt feels they are or have been: No Immunizations Up To Date Tetanus Booster (TDap): More than 5yrs PED Vaccines UTD: No Influenza Vaccine Up-to-Date: Yes; Up-to-Date First/Initial COVID19 Vaccinat: 02/27/21 Second COVID19 Vaccination Ernie: 03/20/21 COVID19 Vaccine 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 Seasonal Allergies Seasonal Allergies: Yes (mild) Past Medical History Surgeries: Yes (HYMENECTOMY, right foot, R knee) Appendectomy, Section, Hysterectomy, Orthopedic Respiratory: No Cardiac: Yes Hypertension Neurological: No Reproductive Disorders: Yes (Hormone replacement therapy) 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 0.0oz. [id number]; 33.00 BMI Method:Stated Progress/Results/Core Measures Results/Orders Lab Results Laboratory Tests Test 11/26/21 23:50 11/27/21 01:00 Range/Units White Blood Count 10.5 4.3-11.0 10^3/uL Red Blood Count 4.51 3.80-5.11 10^6/uL Hemoglobin 13.3 11.5-16.0 g/dL Hematocrit 38 35-52 % Mean Corpuscular Volume 84 80-99 fL Mean Corpuscular Hemoglobin 30 25-34 pg Mean Corpuscular Hemoglobin Concent 35 32-36 g/dL Red Cell Distribution Width 12.3 10.0-14.5 % Platelet Count 280 130-400 10^3/uL Mean Platelet Volume 9.3 9.0-12.2 fL Immature Granulocyte % (Auto) 1 % Neutrophils (%) (Auto) 70 42-75 % Lymphocytes (%) (Auto) 20 12-44 % Monocytes (%) (Auto) 9 0-12 % Eosinophils (%) (Auto) 1 0-10 % Basophils (%) (Auto) 0 0-10 % Neutrophils # (Auto) 7.3 1.8-7.8 10^3/uL Lymphocytes # (Auto) 2.1 1.0-4.0 10^3/uL Monocytes # (Auto) 0.9 0.0-1.0 10^3/uL Eosinophils # (Auto) 0.1 0.0-0.3 10^3/uL Basophils # (Auto) 0.0 0.0-0.1 10^3/uL Immature Granulocyte # (Auto) 0.1 0.0-0.1 10^3/uL Erythrocyte Sedimentation Rate 3 0-30 MM/HR Sodium Level 140 135-145 MMOL/L Potassium Level 3.5 L 3.6-5.0 MMOL/L Chloride Level 104 98-107 MMOL/L Carbon Dioxide Level 24 21-32 MMOL/L Anion Gap 12 5-14 MMOL/L Blood Urea Nitrogen 14 7-18 MG/DL Creatinine 0.61 0.60-1.30 MG/DL Estimat Glomerular Filtration Rate 105 BUN/Creatinine Ratio 23 Glucose Level 87 70-105 MG/DL Calcium Level 9.1 8.5-10.1 MG/DL Corrected Calcium 8.9 8.5-10.1 MG/DL Magnesium Level 1.9 1.6-2.4 MG/DL Total Bilirubin 0.3 0.1-1.0 MG/DL Aspartate Amino Transf (AST/SGOT) 21 5-34 U/L Alanine Aminotransferase (ALT/SGPT) 17 0-55 U/L Alkaline Phosphatase 53 40-136 U/L C-Reactive Protein High Sensitivity 0.07 0.00-0.50 MG/DL Total Protein 6.8 6.4-8.2 GM/DL Albumin 4.2 3.2-4.5 GM/DL TSH [place] Testing 0.75 0.35-4.94 UIU/ML Influenza Type A (RT-PCR) Not Detected Not Detecte Influenza Type B (RT-PCR) Not Detected Not Detecte SARS-CoV-2 RNA (RT-PCR) Not Detected Not Detecte My Orders Orders - JAELYN DIXON DO Covid 19 Inhouse Test (11/26/21 22:48) Influenza A And B By Pcr (11/26/21 22:48) Isolation Central Supply Req (11/26/21 22:48) Ed Iv/Invasive Line Start (11/26/21 22:56) Monitor-Rhythm Ecg Trace Only (11/26/21 22:56) Cbc With Automated Diff (11/26/21 22:56) Comprehensive Metabolic Panel (11/26/21 22:56) Hs C Reactive Protein (11/26/21 22:56) Magnesium (11/26/21 22:56) Thyroid Analyzer (11/26/21 22:56) Erythrocyte Sedimentation Rate (11/26/21 22:56) Ct Head/Cervical Spine Wo (11/26/21 22:56) Vital Signs/I&O 11/26/21 21:22 Temp 36.0 Pulse 83 Resp 18 B/P (MAP) 160/91 (114) Pulse Ox 99 O2 Delivery Room Air Blood Pressure Mean: 114 Departure Impression Primary Impression: Headache Disposition: 01 HOME, SELF-CARE Condition: Stable Departure-Patient Inst. Decision time for Depature: 02:43 Referrals: FATEMEH PIEDRA MD (PCP/Family) Primary Care Physician Patient Instructions: Headache, Adult (DC) Add. Discharge Instructions: INCREASE YOUR FLUID INTAKE TYLENOL 1 GRAM + MOTRIN 800 MG 4 TIMES A DAY FOR HEADACHE FOLLOW UP WITH DR. PIEDRA IN 2-3 DAYS FOR FURTHER CARE All discharge instructions reviewed with patient and/or family. Voiced understanding. JAELYN DIXON DO Nov 27, 2021 02:42
[2021-11-27] MEDS ORDERED: ORPHENADRINE 60 MG/2 ML (NORFLEX) AMP (ED ONLY) IV ONE (02:45)
[2021-11-27] MEDS ORDERED: KETOROLAC 30 MG/ML VIAL IVP ONE (02:45)
[2021-11-27 02:59] VITALS: BP 115/61
--- NOTE | 2021-11-27 07:24 | Diagnostic Imaging Report ---
EXAMINATION: CT head and CT cervical spine without contrast. TECHNIQUE: Multiple contiguous axial images were obtained through the brain and cervical spine without the use of intravenous contrast. Sagittal and coronal reformations through the cervical spine were then performed. All CT scans use one or more of the following dose optimizing techniques: automated exposure control, MA and/or KvP adjustment based on patient size and exam type or iterative reconstruction. HISTORY: Neuro deficit COMPARISON: None available. FINDINGS: The rose-white matter differentiation is normal. No mass effect or midline shift. The ventricles are normal in size and configuration. Basilar cisterns are patent. There are no intra- or extra-axial fluid collections. There is no intracranial hemorrhage. The orbits are normal. Paranasal sinuses are normal. Mastoid air cells are clear. No soft tissue abnormality is seen. No osseus lesions or fractures are seen. There is mild anterolisthesis of C4 on C5. No traumatic malalignment. No fracture is seen. Vertebral body heights are normal. The craniocervical junction is normal. There is moderate degenerative disease in the cervical spine. Degenerative disc disease is most pronounced at C5-C6 and C6-C7. There is bilateral facet arthropathy most pronounced in the left at C3-C4 and on the right at C2-C3, C3-C4 and C4-C5. There is no spinal canal stenosis. No soft tissue abnormality is seen in the neck. Limited views of the superior thorax are normal. IMPRESSION: 1. No acute intracranial abnormality. 2. No cervical spine fracture. Dictated by: Dictated on workstation # [id number]
== END 2021-11-27 03:01 | disposition home or self-care (01) ==
LOC: EDUNIT# 20:05 → ER 20:08
DX: R51.9 Headache, unspecified (principal); I10 Essential (primary) hypertension; F41.0 Panic disorder [episodic paroxysmal anxiety]; Z20.822 Contact with and (suspected) exposure to COVID-19; Z79.899 Other long term (current) drug therapy
CPT/HCPCS: 36415; 70450; 72125; 80053; 83735; 84443; 85025; 85652; 86141; 87636; 93041

== ENCOUNTER → 2022-11-23 | Outpatient (CLI) | payer BC ==
--- NOTE | 2022-11-23 14:47 | Diagnostic Imaging Report ---
Indication: Routine screening. Comparison is made with prior mammogram from 02/18/2021. 2-D and 3-D bilateral screening mammography was performed with CAD. Both breasts are heterogeneously dense, limiting the sensitivity of mammography. The parenchymal pattern is stable. No mass or malignant-appearing microcalcifications are seen. Axillae are unremarkable. IMPRESSION: BI-RADS Category 1 No mammographic features suspicious for malignancy are identified. ACR BI-RADS Category 1: Negative. Result letter will be mailed to the patient. Note: At least 10% of breast cancer is not imaged by mammography. Dictated by: Dictated on workstation # [id number]
== END ==
LOC: RAD 10:41
PROVIDERS: ATTEND Nurse Practitioner Women's Health
DX: Z12.31 Encounter for screening mammogram for malignant neoplasm of breast (principal); Z01.419 Encounter for gynecological examination (general) (routine) without abnormal findings
CPT/HCPCS: 77063; 77067

== ENCOUNTER 2023-04-11 06:21 | Outpatient (CLI) | payer BC ==
[~2023-04-11] VITALS: Ht 157.5 cm; Wt 78.5 kg
[2023-04-11] MEDS ORDERED: OMEP20CA18 PO (16:27)
[2023-04-11] MEDS ORDERED: ASPI-1238 PO (16:27)
[2023-04-11] MEDS ORDERED: FERR142T14 PO (16:27)
[2023-04-11] MEDS ORDERED: LACT1CAP7 PO (16:27)
[2023-04-11] MEDS ORDERED: CRAN1CAP17 PO (16:27)
== END 2023-04-11 16:30 | disposition home or self-care (01) ==
LOC: PREOP 06:21
PROVIDERS: ATTEND Surgery
DX: Z01.818 Encounter for other preprocedural examination (principal)

== ENCOUNTER → 2023-04-23 | Outpatient (CLI) | payer BC ==
[~2023-04-23] MED LIST changes: +ASPI-1238 PO; +BARIUM for suspension 96% w/w (Vanilla Silq Medium Density) PO ONE; +BARIUM for suspension 98% w/w (Vanilla Silq High Density) PO ONE; +CRAN1CAP17 PO; +FERR142T14 PO; +LACT1CAP7 PO; +OMEP20CA18 PO; +PANT40TA2 PO
--- NOTE | 2023-04-23 13:45 | Diagnostic Imaging Report ---
INDICATION: Food getting stuck in throat. Patient ingested effervescent crystals as well as thin and thick barium and imaging of the esophagus was performed in multiple obliquities. Total 46 seconds of fluoroscopic time was utilized. Reference air kerma is 18.9 mGy. 33 images were obtained. Preliminary radiograph of the chest is unremarkable. Heart size is normal. Lungs are clear. Post barium ingestion radiographs demonstrate smooth contour to the esophagus. No mass or strictures identified. No hiatal hernia or gastroesophageal reflux was demonstrated. IMPRESSION: Unremarkable barium esophagram. Dictated by: Dictated on workstation # [id number]
== END ==
LOC: RAD 10:00
PROVIDERS: ATTEND Surgery
DX: T18.128A Food in esophagus causing other injury, initial encounter (principal)
CPT/HCPCS: 74220

== ENCOUNTER 2023-04-24 09:00 | Day surgery (SDC) | payer BC ==
[~2023-04-24] VITALS: Ht 157.5 cm; Wt 78.5 kg
[~2023-04-24 09:00] MED LIST changes: -BARIUM for suspension 96% w/w (Vanilla Silq Medium Density) PO ONE; -BARIUM for suspension 98% w/w (Vanilla Silq High Density) PO ONE; -PANT40TA2 PO
[2023-04-24] MEDS: LACTATED RINGERS 1,000 ML 1,000 ML IV STA (09:30)
[2023-04-24 09:37] VITALS: BP 124/75
--- NOTE | 2023-04-24 09:55 | Progress Note-Pre Operative ---
Pre-Operative Progress Note Date of Available H&P: Apr 24, 2023 Date H&P Reviewed: Apr 24, 2023 Time H&P Reviewed: 09:54 History & Physical: H&P Reviewed, Patient Examed, No changes noted Pre-Operative Diagnosis: Dysphagia, GERD DEMETRIA QUINTANA DO Apr 24, 2023 09:55
[2023-04-24] MEDS: HURRICAINE EXT TUBE (BENZOCAINE) XX PRN (10:18)
[2023-04-24] MEDS ORDERED: proPOfol INJECTION 200 MG/20 ML VIAL IV ONE (10:24)
[2023-04-24] MEDS ORDERED: MIDAZOLAM INJ 2 MG/2 ML VIAL ONE (10:24)
[2023-04-24 10:45] VITALS: BP 102/59
--- NOTE | 2023-04-24 10:45 | Progress Note-Post Operative ---
Post-Operative Progess Note Surgeon (s)/Promotion Producer (s) Surgeon DEMETRIA QUINTANA DO Promotion Producer: n/a Pre-Operative Diagnosis Dysphagia, GERD Post-Operative Diagnosis Reflux esophagitis Procedure & Operative Findings Date of Procedure 04/24/23 Procedure Performed/Findings EGD w/ bx's Anesthesia Type per GRADE SCHOOL TEACHER Estimated Blood Loss Estimated blood loss (mL): none Specimens/Packing Specimens Removed Antrum, GE junction DEMETRIA QUINTANA DO Apr 24, 2023 10:45
[2023-04-24 10:50] VITALS: BP 106/62
[2023-04-24] MEDS ORDERED: PANT40TA2 PO (10:50)
--- NOTE | 2023-04-24 10:52 | Discharge Inst-Simple/Standard ---
Discharge Inst-Standard Discharge Medications New, Converted or Re-Newed RX: Transmitted to Pharmacy Patient Instructions/Follow Up Plan of Care/Instructions/FU: Bryce 2 weeks Activity as Tolerated: Yes Discharge Diet: Regular Diet DEMETRIA QUINTANA DO Apr 24, 2023 10:51
[2023-04-24 11:25] VITALS: BP 106/62
--- NOTE | 2023-04-24 12:36 | Anesthesia-General Post-Op ---
MAC Patient Condition Mental Status/LOC: Same as Preop Cardiovascular: Satisfactory Nausea/Vomiting: Absent Respiratory: Satisfactory Pain: Controlled Complications: Absent Post Op Complications Complications None Follow Up Care/Instructions Patient Instructions None needed. Anesthesiology Discharge Order Discharge Order Patient is doing well, no complaints, stable vital signs, no apparent adverse anesthesia problems. No complications reported per nursing. VIDYA RIVAS CRNA Apr 24, 2023 12:36
--- NOTE | 2023-04-24 17:25 | OPERATIVE REPORT ---
DATE OF SERVICE: 04/24/2023 PREOPERATIVE DIAGNOSES: Dysphagia and gastroesophageal reflux disease. POSTOPERATIVE DIAGNOSIS: Reflux esophagitis. SURGEON: Demetria Wu DO ANESTHESIA: Per FOREIGN LANGUAGE TEACHER. PROCEDURES: EGD with biopsies. INDICATIONS: The patient is a 57-year-old female with dysphagia symptoms. She has a normal barium swallow. She understands risks and benefits of procedure for further evaluation. Consent was signed in chart. DESCRIPTION OF PROCEDURE: The patient was taken to endoscopy suite, placed in left lateral recumbent position. Timeout was performed. Scope was inserted in the mouth, down the esophagus, stomach, into the duodenum without difficulty. No polyps, masses or ulcerations within the duodenum. Scope was slowly retracted back. No polyps, masses or ulcerations in the stomach. Biopsy of the antrum was obtained. Scope was retroflexed, noting no other pathology. Scope was returned to its normal position, slowly withdrawn until distal esophagus. Some slight changes of reflux esophagitis was present. Biopsy of GE junction was obtained. Scope was slowly retracted back until completely removed. The patient tolerated the procedure well without complications, taken to recovery room in stable condition. RECOMMENDATIONS: The patient will stop omeprazole and start Protonix 40 mg daily and see if symptoms improve. The patient will follow up on biopsies in 2 weeks to discuss pathology results. Job ID: [id number] DocumentID: [id number] Dictated Date: 04/24/2023 10:50:39 Arcade Games Mechanic Date: 04/24/2023 17:23:00 Dictated By: DEMETRIA WU DO
== END 2023-04-24 11:25 | disposition home or self-care (01) ==
LOC: ENDO 09:00
PROVIDERS: ATTEND Surgery
DX: K21.00 Gastro-esophageal reflux disease with esophagitis, without bleeding (principal); K31.89 Other diseases of stomach and duodenum; E66.9 Obesity, unspecified; Z68.31 Body mass index [BMI] 31.0-31.9, adult